=== PATIENT | female | born 1985 | race Caucasian/White ===

== ENCOUNTER 2018-03-06 21:28 | Emergency (ER) | payer OTHER ==
[~2018-03-06] VITALS: Ht 162.6 cm; Wt 77.3 kg
[~2018-03-06 21:28] MED LIST: ADVIL200 MG PO; BCP TD; CYMBALTA 60MG60 MG PO; CYMBALTA60 MG PO; FISH OIL1000 MG PO; LORTAB 5/500 501 TAB PO; MOTRIN 800800 MG/TAB PO; NATURAL IRON65 MG; NORCO 325 MG-51 TAB PO; ORTHO TRI-CYCLE1 TA2 PO; PERCOCET 325 MG1 TA2 PO; PHENERGAN 25 TA25 MG PO; PRENATAL1 TA1 PO; PRILOSEC 20MG20 MG PO; PROTONIX 40MG T40 MG PO; PROTONIX20 MG PO; PROTONIX40 MG PO; STOOL SOFTENER100 M1 PO; VITAMIN B COMPL1 SGL PO; ZANTAC 7575 MG PO; ZYRTEC5 MG
[2018-03-06 21:39] VITALS: TEMP 97.7
[2018-03-06 22:34] LABS: BASO # 0.1 (0.0-0.2); BASO % 0.4 % (0.0-2.0); EOS # 0.2 (0.0-0.7); EOS % 1.6 % (0-4.0); GRAN # 10.1 (1.4-6.5); GRAN % 65.9 % (42.2-75.2); HEMOGLOBIN 10.7 g/dl (12.5-16.0); LYMPH # 3.7 (1.2-3.4); LYMPH % 24.3 % (20.0-51.0); MEAN CELL VOLUME 82 fl (80.0-100.0); MEAN CORPUSCULAR HEMOGLOBIN 26 pg (27.0-31.0); MEAN CORPUSCULAR HGB CONC 32 g/dl (33.0-37.0); MEAN PLATELET VOLUME 8.4 fl (7.4-10.4); MONO % 6.6 % (1.7-9.3); PLATELET COUNT 464 K/mm3 (130-400); RED BLOOD COUNT 4.11 M/mm3 (4.10-5.30); REDCELL DISTRIBUTION WIDTH-CV 13.9 % (11.5-14.5)
[2018-03-06 22:35] LABS: HEMATOCRIT 33.5 % (37.0-47.0)
[2018-03-06 22:38] LABS: INR 0.9 (0.8-3.0); PROTHROMBIN TIME 10.7 SECONDS (9.7-12.8)
[2018-03-06 22:40] LABS: PARTIAL THROMBOPLASTIN TIME 30.7 SECONDS (26.0-37.0)
[2018-03-06 22:48] LABS: ALBUMIN 3.7 gm/dL (3.5-5.0); BILIRUBIN,TOTAL 0.1 mg/dL (0.0-1.0); CALCIUM 9.4 mg/dL (8.4-10.2); CREATININE, serum 0.68 mg/dL (0.52-1.25); POTASSIUM 4.1 mmol/L (3.4-5.0); TOTAL PROTEIN 6.9 gm/dL (6.4-8.2)
[2018-03-06 23:11] LABS: COLLECTION METHOD CLEAN CATCH
[2018-03-06 23:20] LABS: HYALINE CAST >12 /lpf; MUCOUS Present /lpf; PH 6 (5-8); SQUAMOUS EPITHELIAL None Seen /hpf; URINE APPEARANCE Clear; URINE BACTERIA Rare /hpf; URINE BILIRUBIN Negative (NEGATIVE); URINE BLOOD 2+ (NEGATIVE); URINE COLOR Straw; URINE GLUCOSE Negative (NEGATIVE); URINE KETONE Negative (NEGATIVE); URINE LEUKOCYTE ESTERASE 1+ (NEGATIVE); URINE NITRATE Negative (NEGATIVE); URINE PROTEIN(semi-quant) Negative (NEGATIVE); URINE RBC 0-2 /hpf; URINE UROBILINOGEN Negative (NEGATIVE)
[2018-03-06] MEDS ORDERED: OMNICEF 300MG300 MG PO (23:33)
[2018-03-07 00:05] VITALS: BP 119/79; PULSE 85
== END 2018-03-07 00:05 | disposition home or self-care (01) ==
LOC: COL.ER 21:28
PROVIDERS: Physician Assistant
DX: O72.1 Other immediate postpartum hemorrhage (principal); O86.20 Urinary tract infection following delivery, unspecified
CPT/HCPCS: A4216; J0696; J7030

== ENCOUNTER 2020-03-18 11:23 | Day surgery (SDC) | payer OTHER ==
[2020-03-18] VITALS (9 sets, daily range): BP systolic 101–130; BP diastolic 53–84; PULSE 59–79; TEMP 97.7–98.8
[~2020-03-18] VITALS: Ht 162.6 cm; Wt 71.7 kg
[~2020-03-18 11:23] MED LIST changes: +OMNICEF 300MG300 MG PO
[2020-03-18] MEDS ORDERED: LAMICTAL 100MG100 MG PO (13:19)
[2020-03-18] MEDS ORDERED: PROTONIX 40MG T40 MG PO (13:19)
[2020-03-18] MEDS ORDERED: ALDACTONE 25MG25 M1 PO (13:20)
[2020-03-18] MEDS ORDERED: VITAMIN D31000 IU PO (13:21)
--- NOTE | 2020-03-18 17:15 | NUR ---
PT TO ROOM 350 PER BED WITH REPORT FROM [facility] [email or web address]. PT IS A/O X3, LUNGS CLEAR, SIX LAP SITES CDI CLOSED WITH EXOFEN. IV TO LFA. PT HAVING SOME SHOULDER PAIN. EDUCATION PROVIDED AND ACKNOWLEDGED BY PT AND SPOUSE.
--- NOTE | 2020-03-18 23:18 | NUR ---
Patient resting in bed and getting up to walk. Patient had complaints of shoulder pain but said the walking helped. However, walking caused her incisions to hurt. Gave patient [place] for pain that she stated was a 11/15. After an hour, the [place] still had not helped so I gave her toradol. When I reassed her pain after the toradol she stated she still had no relief, so I gave her Dilaudid and a warm blanket. Patient now resting in bed trying to go to sleep.
--- NOTE | 2020-03-18 23:43 | NUR ---
Patient states the dilaudid helped her pain and she is resting more comfortably.
--- NOTE | 2020-03-19 02:56 | NUR ---
Patient woke up complaining of pain. Gave her dilaudid since that is what worked earlier. Will reassess.
[2020-03-19 03:43] VITALS: BP 111/35; PULSE 56; TEMP 98.4
[2020-03-19 08:27] VITALS: BP 109/66; PULSE 68; TEMP 98.7
--- NOTE | 2020-03-19 09:00 | NUR ---
Patient resting in bed at this time. Patient is alert and oriented, answers questions appropriately. Lap sites on abdomen are well approximated, some bruising around sites. Patient denies nausea but does complain of 5/10 pain localized to incisions. Administered PRN pain medications per order. Patient denies further needs, call light within reach.
[2020-03-19] MEDS ORDERED: NORCO 325 MG-51 TAB PO ×2 (11:13→14:26)
[2020-03-19 11:53] VITALS: BP 107/59; PULSE 65; TEMP 98.4
--- NOTE | 2020-03-19 11:57 | NUR ---
First visit from the brim stretcher. No needs right now.
--- NOTE | 2020-03-19 13:25 | NUR ---
Discharge teaching completed. Discussed follow up appointment, discharge medications, and discharge instructions. Questions asked and answered. INT removed, catheter intact, hemostasis achieved. Patient denied further needs and confirmed all belongings were gathered. Patient escorted to visitor entrance via wheel chair where she entered a private vehicle.
== END 2020-03-19 13:34 | disposition home or self-care (01) ==
LOC: SDCO 11:23 → SURG 17:00 → SDCO 03-19 13:34
DX: K21.9 Gastro-esophageal reflux disease without esophagitis (principal); K44.9 Diaphragmatic hernia without obstruction or gangrene; Z90.49 Acquired absence of other specified parts of digestive tract; Z88.1 Allergy status to other antibiotic agents; Z87.891 Personal history of nicotine dependence; Z88.5 Allergy status to narcotic agent
CPT/HCPCS: OP; J0690; J1100; J1170; J1885; J2175; J2405; J2704; J3010; J7120